=== PATIENT | female | born 1965 | race Caucasian/White ===

== ENCOUNTER 2025-07-18 15:18 | Emergency (ER) | payer MEDICAID | END 2025-07-18 16:17 | disposition home or self-care (01) | LOC: VM.ED 15:18 | DX: S00.03XA Contusion of scalp, initial encounter (principal); W18.30XA Fall on same level, unspecified, initial encounter; Y92.129 Unspecified place in nursing home as the place of occurrence of the external cause | CPT/HCPCS: 70450; 99283; 99284 ==